=== PATIENT | male | born 1935 | race African-American/Black ===

== ENCOUNTER 2019-07-21 11:53 | Emergency (ER) | payer OTHER, SELFPAY ==
--- NOTE | 2019-07-21 12:14 | ED.GENADULT ---
HPI - General Adult General Chief complaint: Upper Respiratory Infection Stated complaint: Cold/Flu symptoms Time Seen by Provider: 07/21/19 12:28 Source: patient and RN notes reviewed Mode of arrival: ambulatory Limitations: no limitations History of Present Illness HPI narrative: Patient has had a 2 week history of a cough productive of a yellow to green phlegm. He has also had a small non-green nasal drainage. He has not had any sore throat or fever. He is not had any ear pain or drainage from the ears. He has had no rashes. He has had no nausea, no vomiting, and no diarrhea. He has had no hematuria, no dysuria, no pyuria. He has had no rashes. He has not been traveling. He has had no known exposure to anyone with strep throat, mono, influenza, bronchitis, or pneumonia that he is aware of. He is accompanied to the clinic today by his adult daughter. Related Data Home Medications Medication Instructions Recorded Confirmed aspirin 81 mg DAILY 07/21/19 07/21/19 carvedilol 6.25 mg BID 07/21/19 07/21/19 lisinopril 20 mg DAILY 07/21/19 07/21/19 metformin 500 mg BID 07/21/19 07/21/19 Allergies Allergy/AdvReac Type Severity Reaction Status Date / Time No Known Allergies Allergy Mild Verified 07/21/19 12:04 Review of Systems Review of Systems: Narrative: CONSTITUTIONAL: Denies fever, chills, or sweats. Noncontributory except as pertains to the past medical history and history of present illness EYES: Denies visual changes, redness, or discharge. ENT: Denies rhinorrhea, congestion, sore throat, or otalgia. CARDIOVASCULAR: Denies chest pain, palpitations, or edema. RESPIRATORY: Denies cough or dyspnea. GASTROINTESTINAL: Denies abdominal pain, nausea, vomiting, or diarrhea. GENITOURINARY: Denies dysuria or hematuria. SKIN: Denies rash or itching. MUSCULOSKELETAL: Denies back pain, joint pain, or myalgia. NEUROLOGIC: Denies headache, numbness, or weakness. PSYCHIATRIC: Denies anxiety or depression. Allergic/Immunologic: Comments: At time of signature, I have reviewed and agree with nursing past medical, surgical, social, and family history.Please see nursing chart for further information. There is no relevant family history pertinent to the presenting complaint. [facility] Family History Family History (Updated 11/07/16 @ 17:02 by DOCTOR UNKNOWN) Mother Patient's mother is , Onset Age: 85 Father Patient's father is , Onset Age: 75 Social History Social History Smoking status: Never smoker Alcohol intake: never Gender identity (if verbalized by the patient): Male Exam Narrative: Exam Narrative: GENERAL: Well-appearing, well-nourished, and in no acute distress. HEAD: Normocephalic, atraumatic. EYES: PERRLA and EOMI. EARS: TM's clear bilaterally and the canals are clear NOSE: Nares clear, no rhinorrhea or epistaxis. THROAT:Mucous membranes moist.Oropharynx normal without erythema or exudates. NECK: Supple. No adenopathy of the neck, supraclavicular, axillary, inguinal areas RESPIRATORY: No respiratory distress. Airway patent. Respirations non-labored. Lungs have rhonchi in the upper and in the midlung rosales but not the bases. He has no wheezes, no rales, no retractions, no use of accessory muscle respirations. He is not cyanotic and not dyspneic. His pulse ox on room air is 100% current temperature is 37.4 ?C. HEART: Regular rate and rhythm. No murmur heard. Normal peripheral pulses. ABDOMEN: Soft, nontender, nondistended, normal active bowel sounds.No masses. No rebound or guarding, No organomegaly. There is no CVA pain. No pain McBurney's point. The patient has a negative Renee sign and negative Rovsing sign. There are no pulsatile masses no audible bruits. EXTREMITIES: No clubbing/cyanosis/ edema. Normal strength & range of motion. SKIN: Warm, dry.Normal color. No rash or lesions. Patient is well-nourished well-hydrated has moist mucous membranes and no
[2019-07-21 12:17] VITALS: BP 120/48; PULSE 67; RESP 18; TEMP 37.4; O2SAT 100
== END 2019-07-21 12:40 | disposition home or self-care (01) ==
PROVIDERS: Emergency Provider Family Medicine; PCP Emergency Medicine
DX: J40 Bronchitis, not specified as acute or chronic (principal)
CPT/HCPCS: 99213; G0463

== ENCOUNTER → 2023-07-21 15:01 | Outpatient (CLI) | payer OTHER, SELFPAY ==
--- NOTE | ~2023-07-21 | XR_ITS ---
XR hip LT 2V w AP pelvis DATE: 07/21/2023 15:46 INDICATION: Left hip pain TECHNIQUE: AP pelvis. AP and lateral views of left hip COMPARISON: None FINDINGS: Severe multilevel degenerative disc disease from L1-2 through L5-S1. IVC filter is noted at the L2 level. Normal alignment at the pubic symphysis and sacroiliac joints. Likely chronic lucencies are noted at the right pubic bone. If there is any concern for pelvic fractu re, consider CT or MR examination. Approximately 12 mm rounded patchy sclerotic lesion of the lateral left femoral neck, with thin scler otic rim and narrow zone of transition, benign in appearance. Otherwise no fracture or dislocation, avascular necrosis or bone destruction of the left hip. Hip joint spaces are symmetric and relatively well preserved.. IMPRESSION: Approximately 12 mm partially sclerotic lesion of the lateral left femoral neck, with rad iographic features most suggestive of benign process. Consider MR for further evaluation. Probable chronic lucencies at the right pubic bone; if there is concern for pelvic fracture, consider CT or MR for further evaluation Multilevel severe degenerative disc disease of the lumbar spine IVC filter Reviewed, dictated and finalized at location [facility]. 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 Probable chronic lucencies at the right pubic bone; if there is concern for pel alejandra fracture, consider CT or MR for further evaluation Multilevel severe degenerative disc disease of the lumbar spine IVC filter
--- NOTE | ~2023-07-21 | XR_ITS ---
. XR_[id number]_CR DATE: 07/21/2023 15:46 INDICATION: Right knee pain TECHNIQUE: Standing AP and lateral views COMPARISON: None FINDINGS: There is slight periarticular spurring of the patella. Knee joint spaces are relatively wel l preserved. No fracture or dislocation or significant joint effusion is evident. No periosteal reaction or bone d estruction. No radiopaque intra-articular loose body is evident. Prominent femoral artery and some trifurcation artery calcification are noted. IMPRESSION: Slight patellofemoral osteoarthritis Reviewed, dictated and finalized at [facility]. Reviewed, dictated and finalized at location [facility]. ERTY CARETAKER
--- NOTE | ~2023-07-21 | XR_ITS ---
XR_[id number]_CR DATE: 07/21/2023 15:46 INDICATION: Left knee pain TECHNIQUE: Standing AP and lateral views COMPARISON: None FINDINGS: There is very slight periarticular spurring of the patella. Knee joint spaces are well pres erved. No fracture or dislocation or joint effusion is detected. No periosteal reaction or bone destruction. No radiopaque intra-articular loose body or chondrocalcinosis. Prominent femoral and popliteal and trifurcation artery calcifications are noted. Surgical clips along the posteromedial left knee. IMPRESSION: Slight patellofemoral osteoarthritis Arterial calcifications Reviewed, dictated and finalized at [facility]. Reviewed, dictated and finalized at location [facility]. ICAL RESEARCH TECHNICIAN
== END ==
PROVIDERS: PCP Emergency Medicine; Visit Provider Emergency Medicine
DX: M89.8X5 Other specified disorders of bone, thigh (principal); M51.36 Other intervertebral disc degeneration, lumbar region; M17.0 Bilateral primary osteoarthritis of knee; I70.90 Unspecified atherosclerosis; Z95.828 Presence of other vascular implants and grafts
CPT/HCPCS: 73502; 73560

== ENCOUNTER 2023-08-08 10:05 | Outpatient (CLI) | payer OTHER, SELFPAY ==
--- NOTE | ~2023-08-08 | MR_ITS ---
MRI of the lumbar spine Clinical History: Degenerative disc disease Technique: Axial T2-weighted images, and sagittal T1-weighted, T2-weighted, and T2 fat-sat images wer e acquired. Findings: There is no fracture or subluxation of the lumbar spine. Vertebral bodies maintain normal h eight and alignment. No suspicious bone marrow signal abnormality seen. At L1-L2, there is mild to moderate degenerative disc 9. There is diffuse disc bulge and moderate fac et arthropathy, with mild central canal stenosis/thecal sac compression. There is moderate bilateral neural foraminal narrowing. At L2-L3, there is moderate to severe degenerative disc narrowing. Diffuse disc bulge and moderate fa cet arthropathy result in severe spinal canal stenosis/thecal sac compression. There is severe bilate ral neural foraminal narrowing. At L3-L4, there is severe degenerative disc narrowing. Disc bulge and advanced facet arthropathy resu lt in severe spinal canal stenosis/thecal sac compression. There is severe bilateral neural foraminal narrowing. At L4-L5, there is severe degenerative disc narrowing. Disc bulge and advanced facet arthropathy resu lt in severe spinal canal stenosis/thecal sac compression. There is severe bilateral neural foraminal narrowing. At L5-S1, there is severe degenerative disc narrowing. Disc bulge and advanced facet arthropathy are present, with moderate central canal stenosis. There is severe bilateral neural foraminal narrowing. Paravertebral soft tissues are unremarkable. Impression: Severe degenerative spondylosis throughout the lumbar spine. Reviewed, dictated and finalized at [facility]. HEALTH CLINICIAN Impression: Severe degenerative spondylosis throughout the lumbar spine.
--- NOTE | ~2023-08-08 | MR_ITS ---
MRI of the pelvis and left hip Clinical history: Left hip pain Technique: Coronal T1-weighted, T2-weighted, and proton-density fat-sat images, and axial T1-weighted and proton-density fat-sat images were acquired through the pelvis. Coronal T2-weighted images and c oronal, axial, and sagittal proton-density fat-sat images were acquired through the left hip. Findings: There is no fracture or avascular necrosis of either hip. There is a 14 mm intramedullary l esion at the left femoral neck, with narrow zone of transition and probable sclerotic margin, which c orresponds with lesion seen on recent radiographs. Precise etiology is indeterminate, but imaging oc racteristics are consistent with a benign lesion. There is extensive moderate to high-grade chondromalacia of the left hip joint. There is degenerative tear of the anterior to anterosuperior to superior left acetabular labrum. There is focal subchondra l cystic change or reactive marrow edema in the superior left femoral head. No significant joint effu blair seen. There is minimal degenerative change of the right hip joint, with mild chondromalacia. Visualized musculature about the pelvis and left hip is intact. No muscle atrophy or edema. Visualize d tendons are unremarkable. No soft tissue mass or fluid collection. No evidence for bursitis. Markedly enlarged prostate gland noted, with diffuse bladder wall trabeculation distended urinary jp dder. 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 14 mm lesion at the left femoral neck, with benign appearance. Precise etiology is unclear. Markedly enlarged prostate gland with probable chronic bladder outlet obstruction and bladder wall tu berculation. Mild degenerative change of the right hip joint. Reviewed, dictated and finalized at [facility]. 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 14 mm lesion at the left femoral neck, with benign appearance. Precise etiology is unclear. Markedly enlarged prostate gland with probable chronic bladder outlet obstructi on and bladder wall tuberculation. Mild degenerative change of the right hip joint.
== END 2023-08-08 10:06 ==
LOC: MICIMG 10:06
PROVIDERS: PCP Emergency Medicine; Visit Provider Emergency Medicine
DX: M51.36 Other intervertebral disc degeneration, lumbar region (principal); M89.9 Disorder of bone, unspecified; M47.896 Other spondylosis, lumbar region; M16.12 Unilateral primary osteoarthritis, left hip
CPT/HCPCS: 72148; 72195; 73721

== ENCOUNTER 2024-03-11 17:21 | Emergency (ER) | payer OTHER, SELFPAY ==
--- NOTE | ~2024-03-11 | XR_ITS ---
XR hand RT min 3V Ordering provider: Chel Campos PA-C History: . 1-3rd MCP edema . Comparison: None. FINDINGS: BONES: No acute fracture or dislocation. Cystic changes in the scaphoid and lunate bone suggestive of degenerative changes. JOINT SPACES: Normal. SOFT TISSUES: Normal. IMPRESSION: No acute osseous abnormality right hand. Reviewed, dictated and finalized at location [facility].
[2024-03-11 17:38] VITALS: BP 133/47; PULSE 63; RESP 18; TEMP 36.7; O2SAT 100
--- NOTE | 2024-03-11 19:29 | ED.UPPEXIN ---
HPI - Extremity Injury (Upper) General Chief Complaint: Extremity Injury, Upper Stated Complaint: right hand swelling/pain Time Seen by Provider: 03/11/24 19:22 History of Present Illness HPI narrative: 88-year-old male with history of CKD stage 3, DM, hypertension, hyperlipidemia presents to the ED with his daughter at bedside for right hand swelling that they noticed today. Patient's daughter states the patient's hands seem swollen around his 2nd and 3rd knuckles. States she noticed some swelling proximally into his wrist but that has resolved. The patient denies injury or trauma. He denies pain. States he was diagnosed with arthritis as a teenager for is not mentally is arthritis since. The patient's daughter at bedside states she was concerned that maybe cellulitis because it felt warm earlier. Related Data Home Medications Medication Instructions Recorded Confirmed aspirin 81 mg chewable tablet 81 mg DAILY 07/21/19 03/04/24 cranberry 400 mg capsule See Rx Instructions .Route .COMPLEX 07/28/19 03/04/24 docusate sodium 100 mg capsule 100 mg PO BID PRN 07/28/19 03/04/24 (Colace) [id number] tablet 1 tablet PO DAILY 07/28/19 03/04/24 Allergies Allergy/AdvReac Type Severity Reaction Status Date / Time No Known Allergies Allergy Mild Verified 03/11/24 17:24 Review of Systems Review of Systems: All systems reviewed & are unremarkable except as noted in HPI and below PMFSH Past Medical History Medical History Atherosclerotic heart disease of [place] coronary artery with angina pectoris Benign prostatic hyperplasia without lower urinary tract symptoms Body mass index [BMI] 23.0-23.9, adult (10/29/15) Bronchitis CKD (chronic kidney disease) stage 2, GFR 60-89 ml/min CKD (chronic kidney disease) stage 3, GFR 30-59 ml/min Constipation Depression screening negative Encounter for general adult medical examination w/o abnormal findings (08/10/17) Essential (primary) hypertension Fall Fatigue HLD (hyperlipidemia) HTN (hypertension) Hyperkalemia Hypertensive heart disease with heart failure Leg pain, right Mixed hyperlipidemia Osteoarthritis of both knees Patient had no falls in past year PVD (peripheral vascular disease) Type 2 diabetes mellitus with both eyes affected by mild nonproliferative retinopathy and macular edema, with long-term current use of insulin Type 2 diabetes mellitus with diabetic peripheral angiopathy and gangrene, with long-term current use of insulin Type 2 diabetes mellitus without complication Family History Family History Mother Patient's mother is , Onset Age: 85 Father Patient's father is , Onset Age: 75 Social History Social History Smoking status: Never smoker Alcohol intake: never Do You Feel Safe in your Home?: Yes Lack of Transportation: No Lack of Food: Never True Current Housing: I Have Housing Concerned About Future Housing: No Difficulty Paying Gas/Electric Bills: No Difficulty Paying for Meds: No Currently Unemployed: No Education: High School Diploma/GED Difficulty w/ Childcare or Family Care: No Gender identity (if verbalized by the patient): Male Exam Narrative: GENERAL: Well-appearing, well-nourished, and in no acute distress. HEAD: Normocephalic, atraumatic. ENT: Nares clear, no rhinorrhea or epistaxis. Mucous membranes moist. NECK: Supple. CHEST: Clear to auscultation. No respiratory distress. HEART: Regular rate and rhythm. No murmur heard. Normal peripheral pulses. EXTREMITIES: LUE: Mild inflammation and erythema to the dorsum of the 2nd and 3rd MCPs w/o warmth or tenderness. Patient has full active and passive range of motion of all digits and wrist. No edema or erythema extending into the hand or wrist remainder
[2024-03-11 19:44] LABS: Basophils Percent Auto 0.3 % (0.2-1.2); Eosinophils Absolute Auto 0.1 K/mm3 (0-0.3); Hematocrit 28.4 % (42.0-52.0); Immature Granulocyte Absolute 0.01 K/mm3 (0.00-0.031); Immature Granulocyte Percent A 0.2 % (0-0.5); Lymphocytes Absolute Auto 1.77 K/mm3 (0.9-3.2); Lymphocytes Percent Auto 30.3 % (18.3-44.2); Mean Corpuscular HGB Conc 31.7 g/dl (32-36); Mean Corpuscular Hemoglobin 30.3 pg (26-34); Mean Corpuscular Volume 95.6 fl (80-100); Mean Platelet Volume 9.9 fl (7.4-10.4); Monocytes Absolute Auto 0.5 K/mm3 (0.1-0.6); Monocytes Percent Auto 7.9 % (2.6-8.5); Neutrophils Absolute Auto 3.5 K/mm3 (1.3-6.7); Neutrophils Percent Auto 60.3 % (45.5-73.1); Platelet Count Result 239 k/mm3 (150-375); Red Blood Count 2.97 M/mm3 (4.6-6.20); Red Cell Distribution Width 12.2 % (11.5-14.5); White Blood Count 5.8 K/mm3 (4.5-10.0)
[2024-03-11 19:58] LABS: Anion Gap 11 mmol/L (4-12); Blood Urea Nitrogen 33 mg/dL (9-20); Calcium 9.7 mg/dL (8.4-10.2); Carbon Dioxide 25 mmol/L (22-30); Chloride 102 mmol/L (98-107); Estimated CRCL calculation 30 ml/min; Estimated Glomerular Filt Rate 58; Glucose 131 mg/dL (65-110); Potassium 4.8 mmol/L (3.4-5.0); Sodium 138 mmol/L (137-145)
[2024-03-11] MEDS: CEPHALEXIN 500 MG CAPSULE PO (22:00)
[2024-03-11 22:15] VITALS: BP 130/75; PULSE 66; RESP 16; TEMP 36.6; O2SAT 97
== END 2024-03-11 22:18 | disposition home or self-care (01) ==
PROVIDERS: Emergency Provider Physician Assistant; PCP Emergency Medicine
DX: D64.9 Anemia, unspecified (principal); L03.113 Cellulitis of right upper limb; E11.22 Type 2 diabetes mellitus with diabetic chronic kidney disease; N18.30 Chronic kidney disease, stage 3 unspecified; I12.9 Hypertensive chronic kidney disease with stage 1 through stage 4 chronic kidney disease, or unspecified chronic kidney disease; E78.5 Hyperlipidemia, unspecified; I25.10 Atherosclerotic heart disease of native coronary artery without angina pectoris
CPT/HCPCS: 36415; 73130; 80048; 85025; 99283; A9270

== ENCOUNTER 2024-09-05 11:29 | Emergency (ER) | payer OTHER, SELFPAY ==
[2024-09-05] VITALS (7 sets, daily range): BP systolic 122–191; BP diastolic 55–105; PULSE 56–70; RESP 15–20; TEMP 36.6–36.8; O2SAT 97–100
--- NOTE | ~2024-09-05 | CT_ITS ---
CT head without contrast Indication: Head injury Technique: Serial scans were obtained through the brain without the administration of contrast. Dose reduction technique was used on this scan by utilizing automated exposure control and iterative recon struction technique. The dose-length product (DLP) was 605.33 mGy-cm. Findings: There is no evidence of intracranial hemorrhage, mass lesion, or acute infarct. Chronic lef t parietal lobe infarct noted. The ventricles and subarachnoid spaces are dilated, consistent with mo derate atrophy. Low attenuation regions are seen within the periventricular white matter bilaterally , likely representing changes from chronic microvascular ischemic disease. There is no evidence of ed vipul, mass effect or midline shift. The visualized paranasal sinuses and mastoid air cells are clear . Impression: No intracranial hemorrhage, mass, or acute infarct. Chronic left parietal lobe infarct. Atrophy and chronic white matter changes, as above. Reviewed, dictated and finalized at [facility]. Impression: No intracranial hemorrhage, mass, or acute infarct. Chronic left parietal lobe infarct. Atrophy and chronic white matter changes, as above.
--- NOTE | ~2024-09-05 | CT_ITS ---
CT cervical spine wo con Ordering provider: Azucena Neri History: . fall, hit head . Comparison: None. Technique: CT of the cervical spine was performed without contrast. Sagittal and coronal reformatted images were also obtained and reviewed. Automated exposure control and iterative reconstruction sarah hnique were employed. The dose-length product was 239.22 mGy-cm. FINDINGS: VERTEBRAE: No subluxation or acute fracture. The occipital condyles are intact. Kyphosis centered at the level of C3-C4. DISC SPACES: Narrowing of the disc C3-C4, C4-C5, C5-C6 and C6-C7. Multilevel facet joint disease. Mul tilevel uncovertebral joint osteoarthritic changes. Multilevel intervertebral foraminal narrowing and spinal canal stenosis. PARASPINOUS SOFT TISSUES: Bilateral carotid calcification with a retropharyngeal tortuosity. IMPRESSION: No acute osseous abnormality cervical spine. Multilevel degenerative disc disease. Reviewed, dictated and finalized at location A.
--- NOTE | ~2024-09-05 | XR_ITS ---
EXAMINATION: XR chest 2V 09/05/2024 12:17 INDICATION: Cough PROCEDURE: 2 view chest COMPARISON: Comparison to multiple prior studies sequentially, with oldest reviewed study dated 08/29. FINDINGS: The lungs are clear. Status post median sternotomy for CABG. Mildly elevated left diaphragm . The cardiomediastinal silhouette is within normal limits. There are no pleural effusions. There i s no pneumothorax suspected. IMPRESSION: 1: NO ACUTE CARDIOPULMONARY DISEASE. Reviewed, dictated and finalized at location [facility].
--- NOTE | 2024-09-05 11:56 | ECG_ITS ---
Test Date: 2024-09-05 12:19:36 Measurements Intervals [place] Rate: 58 P: 16 CO: 168 QRS: 122 QRSD: 101 T: 129 QT: 411 QTc: 407 Interpretive Statements SINUS BRADYCARDIA POSSIBLE LEFT ATRIAL ENLARGEMENT [-0.1mV P WAVE IN V1/V2] POSSIBLE ANTERIOR MYOCARDIAL INFARCTION , OF INDETERMINATE AGE [30 ms Q WAVE IN V3/V4, OR R < 0.2 mV IN V4] No previous ECG available for comparison Electronically Signed On 09-06-2024 16:36:07 CDT by Kylie White M.D.
--- NOTE | 2024-09-05 11:57 | ED.FALL ---
HPI - Fall General Chief Complaint: Fall <Azucena Neri, FINANCIAL PROFESSIONAL - Last Filed: 09/05/24 12:00> Stated Complaint: fall <Azucena Neri FINANCIAL PROFESSIONAL - Last Filed: 09/05/24 12:00> Time Seen by Provider: 09/05/24 17:55 <Azucena Eastrayray FINANCIAL PROFESSIONAL - Last Filed: 09/05/24 12:00> Focused HPI: Patient is a 89 year male who presents to the ER following a fall prior to arrival. His daughter reports he was sitting in a chair, fell backwards and hit his head. Patient reports is the 2nd time patient has had a fall in the last week. She reports patient is not on blood thinners. Patient's daughter endorses he has a history of diabetes, high blood pressure, and cardiac conditions. At the time of evaluation patient denies any headache, neck pain, back pain, recent fevers, or loss of consciousness. GENERAL: Well-appearing, well-nourished, and in no acute distress. HEAD: Normocephalic, atraumatic. CHEST: Clear to auscultation. ?No respiratory distress. HEART: Bradycardia, regular rate NEURO: ?Alert and oriented x3. Patient screened in triage and initial orders placed.? ?Additional care and disposition to be based upon?diagnostic testing and treatment. <Azucena Eastuble, FINANCIAL PROFESSIONAL - Last Filed: 09/05/24 12:00> Focused HPI: Patient is a 89 year male who presents to the ER following a fall prior to arrival. His daughter reports he was sitting in a chair, fell backwards and hit his head. Patient reports is the 2nd time patient has had a fall in the last week. She reports patient is not on blood thinners. Patient's daughter endorses he has a history of diabetes, high blood pressure, and cardiac conditions. At the time of evaluation patient denies any headache, neck pain, back pain, recent fevers, or loss of consciousness. GENERAL: Well-appearing, well-nourished, and in no acute distress. HEAD: Normocephalic, atraumatic. CHEST: Clear to auscultation. ?No respiratory distress. HEART: Bradycardia, regular rate NEURO: ?Alert and oriented x3. Patient screened in triage and initial orders placed.? ?Additional care and disposition to be based upon?diagnostic testing and treatment. <Dot Fischer PA-C - Last Filed: 09/05/24 21:55> Source: patient and family <Dot Fischer PA-C - Last Filed: 09/05/24 21:55> Mode of arrival: ambulatory <Dot Fischer PA-C - Last Filed: 09/05/24 21:55> Limitations: no limitations <Dot Fischer PA-C - Last Filed: 09/05/24 21:55> History of Present Illness HPI Narrative: Agree with above HPI. Daughter reports that patient's blood pressure was slightly low after his fall. There was possibly report of dizziness. The contacted patient's PCP was referred here for further evaluation. Patient states he feels fine currently. He denies any dizziness currently. Denies any pain. Daughter does note that patient was started on finasteride 1 month ago for prostate issues and does occasionally have dizziness related to this. <Dot Fischer PA-C - Last Filed: 09/05/24 21:55> Related Data Home Medications: Home Medications ?Medication ?Instructions ?Recorded ?Confirmed ?Last Taken ?Type aspirin 81 mg chewable tablet 81 mg DAILY 07/21/19 08/04/24 Unknown History cranberry fruit 400 mg capsule See Rx Instructions .Route .COMPLEX 07/28/19 08/04/24 Unknown History docusate sodium 100 mg capsule 100 mg PO BID PRN 07/28/19 08/04/24 Unknown History (Colace) fxdinwjfkmdi-ozzfhmwl-kygbus tablet 1 tablet PO DAILY 07/28/19 08/04/24 Unknown History tamsulosin 0.4 mg capsule mg PO 08/03/24 08/04/24 Unknown History <Azucena Neri APRN - Last Filed: 09/05/24 12:00> Allergies/Adverse Reactions: Allergies Allergy/AdvReac Type Severity Reaction Status Date / Time No Known Allergies Allergy Mild Verified 08/03/24 15:02 <Azucena Neri APRN - Last Filed: 09/05/24 12:00> Review of Systems Review of Systems: All systems reviewed & are unremarkable except as noted in HPI. <Dot Fischer PA-C - Last Filed: 09/05/24 21:55> All systems reviewed & are unremarkable except as noted in HPI and below <Dot Fischer PA-C - Last Filed: 09/05/24 21:55> [facility] Past Medical History Medical History: Medical History Fall Atherosclerotic heart disease of [place] coronary artery with angina pectoris Benign prostatic hyperplasia without lower urinary tract symptoms Body mass index [BMI] 23.0-23.9, adult (10/29/15) Bronchitis CKD (chronic kidney disease) stage 2, GFR 60-89 ml/min CKD (chronic kidney disease) stage 3, GFR 30-59 ml/min Constipation Depression screening negative Encounter for general adult medical examination w/o abnormal findings (08/10/17) Essential (primary) hypertension Fatigue Hyperkalemia Hypertensive heart disease with heart failure Leg pain, right Mixed hyperlipidemia Osteoarthritis of both knees PVD (peripheral vascular disease) Patient had no falls in past year Type 2 diabetes mellitus with both eyes affected by mild nonproliferative retinopathy and macular edema, with long-term current use of insulin Type 2 diabetes mellitus with diabetic peripheral angiopathy and gangrene, with long-term current use of insulin Type 2 diabetes mellitus without complication HTN (hypertension) HLD (hyperlipidemia) <Azucena Neri APRN - Last Filed: 09/05/24 12:00> Family History Family History: Family History Mother Patient's mother is , Onset Age: 85 Father Patient's father is , Onset Age: 75 <Azucena Neri APRN - Last Filed: 09/05/24 12:00> Social History Social History: Social History Smoking status: Never smoker Alcohol intake: never Do You Feel Safe in your Home?: Yes Lack of Transportation: No Lack of Food: Never True Current Housing: I Have Housing Concerned About Future Housing: No Difficulty Paying Gas/Electric Bills: No Difficulty Paying for Meds: No Currently Unemployed: No Education: High School Diploma/GED Difficulty w/ Childcare or Family Care: No Gender identity (if verbalized by the patient): Male <Azucena Neri APRN - Last Filed: 09/05/24 12:00> Exam Narrative: GENERAL: Elderly but well appearing, well-nourished, non-toxic, in no acute distress. HEAD: Normocephalic, atraumatic. RESPIRATORY: Airway patent, respirations nonlabored. Clear to auscultation bilaterally, no rales, rhonchi, wheezing. CARDIOVASCULAR: Borderline bradycardic with regular rhythm without murmurs, rubs, or gallops. MUSCULOSKELETAL: Moves all extremities. No gross deformities. SKIN: Warm, dry, normal color. NEURO: A&O X3. Speech clear. Cranial nerves II-XII grossly intact. Steady gait. No ataxic movements. Strength 5 of 5 in upper and lower extremities bilaterally. Equal [place] strength. No focal deficits. PSYCHIATRIC: Appropriate mood and affect. Normal interaction. <Dot Fischer PA-C - Last Filed: 09/05/24 21:55> Course Vital Signs Vital signs: Vital Signs Temperature 97.8 F 09/05/24 11:48 Pulse Rate 58 L 09/05/24 11:48 Respiratory Rate 17 09/05/24 11:48 Blood Pressure 138/55 L 09/05/24 11:48 Pulse Oximetry 100 09/05/24 11:48 Oxygen Delivery Room Air 09/05/24 11:48 Temperature 98.2 F 09/05/24 17:33 Pulse Rate 70 09/05/24 21:01 Respiratory Rate 15 09/05/24 21:00 Blood Pressure 159/75 H 09/05/24 21:01 Pulse Oximetry 99 09/05/24 21:00 Oxygen Delivery Room Air 09/05/24 11:48 <Azucena Neri, GINETTE - Last Filed: 09/05/24 12:00> Vital Signs Temperature 97.8 F 09/05/24 11:48 Pulse Rate 58 L 09/05/24 11:48 Respiratory Rate 17 09/05/24 11:48 Blood Pressure 138/55 L 09/05/24 11:48 Pulse Oximetry 100 09/05/24 11:48 Oxygen Delivery Room Air 09/05/24 11:48 Temperature 98.2 F 09/05/24 17:33 Pulse Rate 70 09/05/24 21:01 Respiratory Rate 15 09/05/24 21:00 Blood Pressure 159/75 H 09/05/24 21:01 Pulse Oximetry 99 09/05/24 21:00 Oxygen Delivery Room Air 09/05/24 11:48 <Dot Fischer PA-C - Last Filed: 09/05/24 21:55> MDM - Fall MDM Narrative Medical decision making narrative: Patient presented to ED with report of a fall, head injury. Possible dizziness associated after the fall. Vital signs are stable upon arrival. Patient is in no acute distress upon my evaluation. Neurologically intact. CT brain and cervical spine was negative for traumatic findings. Chest x-ray is clear. EKG with sinus bradycardia, nonspecific ST changes. Patient denies any chest pain. Troponin is undetectable. Laboratory studies are otherwise fairly unremarkable. No leukocytosis. Chronic mild anemia, consistent with previous records. Stable electrolytes. Stable kidney function, consistent with previous records. UA clear. Orthostatic vital signs were evaluated and positive with almost 20 point drop with each position change. Patient given 1 L fluid bolus. Repeat orthostatic vital signs after fluid administration more significantly improved. Discussed this with patient and family. Advised patient to stay very well hydrated at home, follow closely with primary care doctor for further evaluation as orthostatic hypotension can be related to medications. He is on finasteride, tamsulosin, carvedilol, lisinopril. Patient has a follow-up appointment with his PCP next Thursday. Otherwise feel he is safe for discharge home at this time. He lives with his daughter. They are in agreement with plan. Given strict return precautions. Patient voiced understanding. Discharged in stable condition. Vital signs stable at time of D/C. <Dot Fischer PA-C - Last Filed: 09/05/24 21:55> Medical Records Attestation: I reviewed the patient's medical records. <Dot Fischer PA-C - Last Filed: 09/05/24 21:55> Lab Data Attestation: I reviewed the patient's lab results. <Dot Fischer PA-C - Last Filed: 09/05/24 21:55> Result diagrams: 09/05/24 12:25 09/05/24 12:25 <Azucenachrissie Neri, FINANCIAL PROFESSIONAL - Last Filed: 09/05/24 12:00> Labs: Lab Results 09/05/24 09/05/24 Range/Units 12:25 19:43 WBC 5.7 (4.5-10.0) K/mm3 RBC 3.27 L (4.6-6.20) M/mm3 Hgb 9.7 L (14.0-18.0) g/dL Hct 31.3 L (42.0-52.0) % MCV 95.7 (80-100) fl MCH 29.7 (26-34) pg MCHC 31.0 L (32-36) g/dl RDW 12.7 (11.5-14.5) % Plt Count 274 (150-375) k/mm3 MPV 9.8 (7.4-10.4) fl Immature Gran % (Auto) 0.4 (0-0.5) % Neut % (Auto) 57.6 (45.5-73.1) % Lymph % (Auto) 31.3 (18.3-44.2) % Taylor % (Auto) 8.0 (2.6-8.5) % Eos % (Auto) 2.3 (0-4.4) % Baso % (Auto) 0.4 (0.2-1.2) % Lymph # (Auto) 1.77 (0.9-3.2) K/mm3 Taylor # (Auto) 0.5 (0.1-0.6) K/mm3 Eos # (Auto) 0.1 (0-0.3) K/mm3 Baso # (Auto) 0.0 (0.0-0.1) K/mm3 Abs Immat Gran (auto) 0.02 (0.00-0.031) K/mm3 Absolute Neuts (auto) 3.3 (1.3-6.7) K/mm3 Absolute Nucleated RBC 0.000 (0.0-0.012) K/mm3 Nucleated RBC % 0.0 (0.0-0.2) % PT 14.7 (11.1-14.7) Seconds INR 1.1 APTT 32.5 (22.3-36.8) Seconds Sodium 141 (137-145) mmol/L Potassium 4.9 (3.4-5.0) mmol/L Chloride 106 (98-107) mmol/L Carbon Dioxide 22 (22-30) mmol/L Anion Gap 13 H (4-12) mmol/L BUN 26 H (9-20) mg/dL Creatinine 1.12 (0.7-1.3) mg/dL Estim Creat Clear Calc 33 ml/min Estimated GFR > 60 (59 - ) Glucose 115 H (65-110) mg/dL Calcium 9.4 (8.4-10.2) mg/dL Total Bilirubin 0.4 (0.2-1.3) mg/dL AST 18 (17-59) U/L ALT 16 (6-50) U/L Alkaline Phosphatase 63 (38-126) U/L Troponin I < 0.012 (0.000-0.034) ng/mL Total Protein 7.0 (6.3-8.2) g/dL Albumin 4.2 (3.5-5.1) g/dL Urine Color Yellow (Yellow) Urine Appearance Clear (Clear) Urine pH 5.5 (5.0-9.0) Ur Specific [place] 1.018 (1.001-1.035) Urine Protein Trace (Negative) mg/dL Urine Glucose (UA) Negative (Negative) mg/dL Urine Ketones Negative (Negative) mg/dL Ur Blood (Man) Negative (Negative) Urine Nitrate Negative (Negative) Urine Bilirubin Negative (Negative) Urine Urobilinogen 0.2 (<2.0) mg/dL Leukocyte Esterase Rfl Negative (Negative) CORAL/UL Urine RBC 0-2 (0-2) /hpf Urine WBC 0-5 (0-3) /hpf Ur Squamous Epith Cells None seen (Few) /hpf Urine Bacteria None seen /hpf Urine Casts 0-2 <Azucena Neri, FINANCIAL PROFESSIONAL - Last Filed: 09/05/24 12:00> Lab Results 09/05/24 09/05/24 Range/Units 12:25 19:43 WBC 5.7 (4.5-10.0) K/mm3 RBC 3.27 L (4.6-6.20) M/mm3 Hgb 9.7 L (14.0-18.0) g/dL Hct 31.3 L (42.0-52.0) % MCV 95.7 (80-100) fl MCH 29.7 (26-34) pg MCHC 31.0 L (32-36) g/dl RDW 12.7 (11.5-14.5) % Plt Count 274 (150-375) k/mm3 MPV 9.8 (7.4-10.4) fl Immature Gran % (Auto) 0.4 (0-0.5) % Neut % (Auto) 57.6 (45.5-73.1) % Lymph % (Auto) 31.3 (18.3-44.2) % Taylor % (Auto) 8.0 (2.6-8.5) % Eos % (Auto) 2.3 (0-4.4) % Baso % (Auto) 0.4 (0.2-1.2) % Lymph # (Auto) 1.77 (0.9-3.2) K/mm3 Taylor # (Auto) 0.5 (0.1-0.6) K/mm3 Eos # (Auto) 0.1 (0-0.3) K/mm3 Baso # (Auto) 0.0 (0.0-0.1) K/mm3 Abs Immat Gran (auto) 0.02 (0.00-0.031) K/mm3 Absolute Neuts (auto) 3.3 (1.3-6.7) K/mm3 Absolute Nucleated RBC 0.000 (0.0-0.012) K/mm3 Nucleated RBC % 0.0 (0.0-0.2) % PT 14.7 (11.1-14.7) Seconds INR 1.1 APTT 32.5 (22.3-36.8) Seconds Sodium 141 (137-145) mmol/L Potassium 4.9 (3.4-5.0) mmol/L Chloride 106 (98-107) mmol/L Carbon Dioxide 22 (22-30) mmol/L Anion Gap 13 H (4-12) mmol/L BUN 26 H (9-20) mg/dL Creatinine 1.12 (0.7-1.3) mg/dL Estim Creat Clear Calc 33 ml/min Estimated GFR > 60 (59 - ) Glucose 115 H (65-110) mg/dL Calcium 9.4 (8.4-10.2) mg/dL Total Bilirubin 0.4 (0.2-1.3) mg/dL AST 18 (17-59) U/L ALT 16 (6-50) U/L Alkaline Phosphatase 63 (38-126) U/L Troponin I < 0.012 (0.000-0.034) ng/mL Total Protein 7.0 (6.3-8.2) g/dL Albumin 4.2 (3.5-5.1) g/dL Urine Color Yellow (Yellow) Urine Appearance Clear (Clear) Urine pH 5.5 (5.0-9.0) Ur Specific [place] 1.018 (1.001-1.035) Urine Protein Trace (Negative) mg/dL Urine Glucose (UA) Negative (Negative) mg/dL Urine Ketones Negative (Negative) mg/dL Ur Blood (Man) Negative (Negative) Urine Nitrate Negative (Negative) Urine Bilirubin Negative (Negative) Urine Urobilinogen 0.2 (<2.0) mg/dL Leukocyte Esterase Rfl Negative (Negative) CORAL/UL Urine RBC 0-2 (0-2) /hpf Urine WBC 0-5 (0-3) /hpf Ur Squamous Epith Cells None seen (Few) /hpf Urine Bacteria None seen /hpf Urine Casts 0-2 <Dot Fischer PA-C - Last Filed: 09/05/24 21:55> Imaging Data Attestation: I personally reviewed and interpreted this imaging study as follows: <TRINY Gottlieb Last Filed: 09/05/24 21:55> Radiologist's impression: ITS Impressions Head CT 09/05/24 12:11 Impression: No intracranial hemorrhage, mass, or acute infarct. Chronic left parietal lobe infarct. Atrophy and chronic white matter changes, as above. Cervical Spine CT 09/05/24 12:13 IMPRESSION: No acute osseous abnormality cervical spine. Multilevel degenerative disc disease. Chest X-Ray 09/05/24 12:18 IMPRESSION: 1: NO ACUTE CARDIOPULMONARY DISEASE. <TRINY Gottlieb Last Filed: 09/05/24 21:55> ECG Data EKG #1: Attestation: I personally reviewed and interpreted this ECG as follows: <TRINY Gottlieb Last Filed: 09/05/24 21:55> ECG completion date: 09/05/24 <Dot Fischer PA-C - Last Filed: 09/05/24 21:55> ECG completion time: 12:19 <Dot Fischer PA-C - Last Filed: 09/05/24 21:55> EKG Interpretation: bradycardia (58), sinus rhythm and non-specific ST changes <TRINY Gottlieb Last Filed: 09/05/24 21:55> Discharge Plan Discharge Clinical Impression: Fall from ground level, Orthostatic hypotension Closed head injury Qualifiers: Encounter type: initial encounter Qualified Code(s): S09.90XA - Unspecified injury of head, initial encounter <Azucena Neri APRN - Last Filed: 09/05/24 12:00> Patient Disposition: Home, Self-Care <Azucena Neri APRN - Last Filed: 09/05/24 12:00> Condition: Stable <Azucena Neri APRN - Last Filed: 09/05/24 12:00> Instructions: Antibiotic Form, Head Injury (ED), Hypotension (ED) <Azucena Neri APRN - Last Filed: 09/05/24 12:00> Additional Instructions: Your workup here was reassuring. Stay well hydrated at home. Avoid abrupt position changes as this could cause a slight drop in your blood pressure. Follow-up closely with your primary care doctor for further evaluation. Return to the ED if you experience recurrent fall or injury, severe dizziness, passing out, chest pain, difficulty breathing, unable to keep down food or drink, or any other symptoms of concern. <Azucena Neri APRN - Last Filed: 09/05/24 12:00> Patient Language: Greek <Azucena Neri APRN - Last Filed: 09/05/24 12:00> Prescriptions: No Action aspirin 81 mg Tablet,Chewable 81 mg DAILY rbbztlsqjpur-rzcpjuxl-fvzrkm Tablet 1 tablet PO DAILY cranberry fruit 400 mg capsule See Rx Instructions .ROUTE .COMPLEX Rx Instructions: take as directed; administer with a meal docusate sodium [Colace] 100 mg capsule 100 mg PO BID PRN tamsulosin 0.4 mg capsule PO (DME) lancets [Microlet Lancet] Misc See Rx Instructions .ROUTE .COMPLEX Qty: 100 11RF Dose Instruction: TEST BLOOD SUGARS ONCE DAILY Rx Instructions: TEST BLOOD SUGARS up to 3 times per day as needed carvedilol 3.125 mg tablet See Rx Instructions .ROUTE .COMPLEX Qty: 180 2RF Dose Instruction: TAKE 1 TABLET BY MOUTH EVERY 12 HOURS MUST ADMINISTER WITH A MEAL/FOOD Rx Instructions: TAKE 1 TABLET BY MOUTH EVERY 12 HOURS MUST ADMINISTER WITH A MEAL/FOOD pravastatin 40 mg tablet See Rx Instructions .ROUTE .COMPLEX Qty: 90 2RF Dose Instruction: TAKE 1 TABLET BY MOUTH EVERY DAY Rx Instructions: TAKE 1 TABLET BY MOUTH EVERY DAY metformin 1,000 mg tablet 1,000 mg PO BID Qty: 180 2RF lisinopril 20 mg tablet See Rx Instructions .ROUTE .COMPLEX Qty: 90 2RF Dose Instruction: TAKE 1 TABLET BY MOUTH EVERY DAY Rx Instructions: TAKE 1 TABLET BY MOUTH EVERY DAY benzonatate 100 mg capsule 100 mg PO TID Qty: 21 0RF <Azucena Neri APRN - Last Filed: 09/05/24 12:00> Follow-up/Referrals: Dionisio Cabrera MD [Primary Care Provider] - <Azucena Neri APRN - Last Filed: 09/05/24 12:00> Stand Alone Forms: Work/School Release IP <Azucena Neri APRN - Last Filed: 09/05/24 12:00> Time of Disposition: 21:14 <Azucena Neri APRN - Last Filed: 09/05/24 12:00> 21:14 <Dot Fischer PA-C - Last Filed: 09/05/24 21:55>
[2024-09-05 12:31] LABS: Basophils Percent Auto 0.4 % (0.2-1.2); Eosinophils Absolute Auto 0.1 K/mm3 (0-0.3); Eosinophils Percent Auto 2.3 % (0-4.4); Hematocrit 31.3 % (42.0-52.0); Hemoglobin 9.7 g/dL (14.0-18.0); Immature Granulocyte Absolute 0.02 K/mm3 (0.00-0.031); Immature Granulocyte Percent A 0.4 % (0-0.5); Lymphocytes Absolute Auto 1.77 K/mm3 (0.9-3.2); Lymphocytes Percent Auto 31.3 % (18.3-44.2); Mean Corpuscular Hemoglobin 29.7 pg (26-34); Mean Corpuscular Volume 95.7 fl (80-100); Mean Platelet Volume 9.8 fl (7.4-10.4); Monocytes Absolute Auto 0.5 K/mm3 (0.1-0.6); Neutrophils Absolute Auto 3.3 K/mm3 (1.3-6.7); Neutrophils Percent Auto 57.6 % (45.5-73.1); Platelet Count Result 274 k/mm3 (150-375); Red Blood Count 3.27 M/mm3 (4.6-6.20); Red Cell Distribution Width 12.7 % (11.5-14.5); White Blood Count 5.7 K/mm3 (4.5-10.0)
[2024-09-05 12:41] LABS: Alanine Aminotransferase 16 U/L (6-50); Albumin Level 4.2 g/dL (3.5-5.1); Alkaline Phosphatase 63 U/L (38-126); Anion Gap 13 mmol/L (4-12); Aspartate Amino Transferase 18 U/L (17-59); Bilirubin,Total 0.4 mg/dL (0.2-1.3); Blood Urea Nitrogen 26 mg/dL (9-20); Calcium 9.4 mg/dL (8.4-10.2); Carbon Dioxide 22 mmol/L (22-30); Chloride 106 mmol/L (98-107); Estimated CRCL calculation 33 ml/min; Estimated Glomerular Filt Rate > 60; Glucose 115 mg/dL (65-110); Potassium 4.9 mmol/L (3.4-5.0); Sodium 141 mmol/L (137-145)
[2024-09-05 12:42] LABS: INR 1.1; Prothrombin Time 14.7 Seconds (11.1-14.7)
[2024-09-05 12:43] LABS: Partial Thromboplastin Time 32.5 Seconds (22.3-36.8)
[2024-09-05 12:55] LABS: Troponin I < 0.012 ng/mL (0.000-0.034)
--- OUTSIDE RECORDS SUMMARY | 2024-09-05 14:04 | XMS_ITS | Clinical Summary ---
Author Organization [facility] Address [address] [place] [address] Care Team Providers Care Rubber Goods Inspector Name Role Phone Unavailable Primary Care Provider Unavailabl e Social History Tobacco Use Types Packs/Day Years Used Date Smoking Tobacco: Never Assessed Sex and Gender Information Value Date Recorded Sex Assigned at Not on file Legal Sex Male 6:30 PM CDT Gender Identity Not on file Sexual Orientation Not on file Plan of Treatment Health Maintenance Due Date Last Done Comments DTaP, Tdap and Td Vaccines ( 1 - Tdap) 1954 Zoster Vaccines (1 of 2) 1985 Pneumococcal Vaccine: 65+ Ye ars (1 of 1 - PCV) 2000 RSV Immunization or 60+ Years (1 - 1-dose 75+ series) 2010 COVID-19 Vaccine ( - 2023-2 5 season) 2024 Influenza Adult (#1) 2024 Meningococcal B Vaccine Aged Out No l onger eligible based on patient's age to complete this topic Meningococcal Vaccine Aged Out No irineo esvin eligible based on patient's age to complete this topic RSV Immunizations Under 20 Months Aged Out No longer eligible based on patient's age to complete this topic
--- OUTSIDE RECORDS SUMMARY | 2024-09-05 14:27 | XMS_ITS | Clinical Summary ---
Author Organization [facility] Address [address] [place] [address] Care Team Providers Care [address] Pressman Name Role Phone Unavailable Primary Care Provider [...]
[2024-09-05 20:11] LABS: Add Urine Microscopic? YES; Appearance Urine Clear (Clear); Bacteria Urine None Seen /hpf; Bilirubin Urine Negative (Negative); Blood Urine Negative (Negative); Color Urine Yellow (Yellow); Glucose Urine UA Negative (Negative); Ketones Urine Negative (Negative); Leukocyte Esterase Ur Negative LEU/UL (Negative); Nitrate Urine Negative (Negative); Non Pathogenic Casts 0-2; Protein Urine Trace mg/dL (Negative); RBC Urine 0-2 /hpf (0-2); Specific Grav Ur 1.018 (1.001-1.035); Squamous Epithelial Cell Urine None Seen /hpf (Few); Urobilinogen Urine 0.2 mg/dL (<2.0); WBC Urine 0-5 /hpf (0-3); pH Urine 5.5 (5.0-9.0)
[2024-09-05] MEDS: SODIUM CHLORIDE 0.9% IV 1,000 ML 999 ML IV CONT (20:11)
== END 2024-09-05 21:55 | disposition home or self-care (01) ==
PROVIDERS: Registered Nurse; Emergency Provider Physician Assistant; PCP Emergency Medicine
DX: S09.90XA Unspecified injury of head, initial encounter (principal); I95.1 Orthostatic hypotension; I25.119 Atherosclerotic heart disease of native coronary artery with unspecified angina pectoris; I13.0 Hypertensive heart and chronic kidney disease with heart failure and stage 1 through stage 4 chronic kidney disease, or unspecified chronic kidney disease; I50.9 Heart failure, unspecified; E11.22 Type 2 diabetes mellitus with diabetic chronic kidney disease; N18.30 Chronic kidney disease, stage 3 unspecified; E78.2 Mixed hyperlipidemia; E11.3213 Type 2 diabetes mellitus with mild nonproliferative diabetic retinopathy with macular edema, bilateral; E11.52 Type 2 diabetes mellitus with diabetic peripheral angiopathy with gangrene; I96 Gangrene, not elsewhere classified; M17.0 Bilateral primary osteoarthritis of knee; Z79.82 Long term (current) use of aspirin; Z79.84 Long term (current) use of oral hypoglycemic drugs; Z79.899 Other long term (current) drug therapy; M50.31 Other cervical disc degeneration, high cervical region; R00.1 Bradycardia, unspecified; R94.31 Abnormal electrocardiogram [ECG] [EKG]; W07.XXXA Fall from chair, initial encounter
CPT/HCPCS: 36415; 70450; 71046; 72125; 80053; 81001; 84484; 85025; 85610; 85730; 93005; 96360; 99284; J7030